=== PATIENT | female | born 1980 | race Asian ===

== ENCOUNTER 2020-08-03 15:16 | Emergency (ER) | payer MEDICAID ==
[~2020-08-03] VITALS: Ht 157.5 cm; Wt 77.3 kg
[2020-08-03] MEDS ORDERED: SERT50TA12 PO (15:25)
[2020-08-03] MEDS ORDERED: RISP0.5T39 PO (15:25)
[2020-08-03 15:53] VITALS: BP 130/80
== END 2020-08-03 16:06 | disposition home or self-care (01) ==
LOC: EMS 15:16
DX: R05 Cough (principal); J02.9 Acute pharyngitis, unspecified; Z20.828 Contact with and (suspected) exposure to other viral communicable diseases
CPT/HCPCS: 99283; U0003

== ENCOUNTER 2020-08-16 16:12 | Emergency (ER) | payer MEDICAID ==
[~2020-08-16] VITALS: Ht 165.1 cm; Wt 100.0 kg
[~2020-08-16 16:12] MED LIST: RISP0.5T39 PO; SERT50TA12 PO
[2020-08-16 16:16] VITALS: BP 148/82
== END 2020-08-16 17:20 | disposition home or self-care (01) ==
LOC: EMS 16:12
DX: R05 Cough (principal); R51.9 Headache, unspecified; Z20.828 Contact with and (suspected) exposure to other viral communicable diseases
CPT/HCPCS: 99283; U0003